=== PATIENT | male | born 1930 | race Caucasian/White ===

== ENCOUNTER 2019-01-13 17:52 | Emergency (ER) | payer MEDICARE ==
--- NOTE | 2019-01-13 18:34 | EDM.PDOC ---
ED HPI GENERAL MEDICAL PROBLEM - General Chief Complaint: General Stated Complaint: SENT BY DR FOY Time Seen by Provider: 01/13/19 18:20 Source of Information: Reports: Patient, Provider History Limitations: Reports: No Limitations - History of Present Illness INITIAL COMMENTS - FREE TEXT/NARRATIVE: 88-year-old male with no previous history of renal failure, presented to the clinic today with 5 days of progressive weakness. Labs done at the clinic revealed renal failure with a GFR of 16, creatinine 3.2, and potassium significantly high at 8.5. He was sent over to the emergency room for stabilization and transfer. The patient really does not have any complaints other than weakness. Denies any shortness of breath, he did have a few episodes of diarrhea over the past several days. No nausea or vomiting, no pain. He is a full code. Onset: Unknown/Unsure Duration: Day(s): (5 days) Location: Reports: Generalized - Related Data Allergies Allergy/AdvReac Type Severity Reaction Status Date / Time No Known Allergies Allergy Verified 01/13/19 18:24 Home Meds: Home Meds Aspirin 325 mg PO DAILY 08/08/16 [History] Clopidogrel [Plavix] 75 mg PO DAILY 08/08/16 [History] Lisinopril 10 mg PO DAILY 08/08/16 [History] Metoprolol Tartrate [Lopressor] 25 mg PO BID 08/08/16 [History] Nitroglycerin [Nitrostat] 0.3 mg SL ASDIRECTED 08/08/16 [History] Simvastatin [Zocor] 20 mg PO BEDTIME 08/08/16 [History] Tamsulosin [Flomax] 0.4 mg PO DAILY 08/08/16 [History] Furosemide 40 mg PO DAILY 01/13/19 [History] Past Medical History Cardiovascular History: Reports: Bypass, CAD, High Cholesterol, Hypertension, [place] , Stents Gastrointestinal History: Reports: Colon Polyp, Other (See Below) Other Gastrointestinal History: [facility] Musculoskeletal History: Reports: Other (See Below) Other Musculoskeletal History: 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 Denies: Fever, Chills HEENT: Reports: No Symptoms Respiratory: Denies: Shortness of Breath Cardiovascular: Denies: Chest Pain, Palpitations GI/Abdominal: Reports: Diarrhea. Denies: Abdominal Pain, Nausea, Vomiting : Reports: No Symptoms Skin: Reports: Other ( mild cyanosis mild cyanosis of the distal hands and fingers) Neurological: Reports: Weakness Psychiatric: Reports: No Symptoms ED EXAM, GENERAL - Physical Exam Exam: See Below Exam Limited By: No Limitations General Appearance: Alert, No Apparent Distress Eye Exam: Bilateral Eye: EOMI Head: Atraumatic Neck: Normal Inspection, Non-Tender Respiratory/Chest: No Respiratory Distress, Other (A few chronic sounding basilar rales are present, otherwise clear) Cardiovascular: Regular Rate, Rhythm, Bradycardia GI/Abdominal: Soft, Non-Tender Extremities: Pedal Edema (Just a trace of lower extremity edema, symmetric) Neurological: Alert, Oriented Psychiatric: Flat Affect EKG INTERPRETATION EKG Interpretation Comments: EKG showed a junctional rhythm at 44. 2 IVs were started, and the patient was given 1000 mg of IV calcium and 1 amp of D50. Also given 50 mEq of sodium bicarbonate. ABGs obtained before the bicarbonate revealed a pH of 7.1. Arrangements are made for urgent transfer to [place] where there is nephrology and dialysis available. Course - Vital Signs Last Recorded V/S: Last Vital Signs Temp 95.8 F 01/13/19 18:35 Pulse 42 L 01/13/19 19:12 Resp 14 01/13/19 19:12 BP 88/42 L 01/13/19 19:12 Pulse Ox 92 L 01/13/19 19:12 - Orders/Labs/Meds Orders: Active Orders 24 hr Category Date Time Status EKG Documentation Completion [RC] ASDIRECTED Care 01/13/19 18:32 Active EKG 12 Lead [EK] Routine Ther 01/13/19 18:32 Ordered Labs: Laboratory Tests 01/13/19 01/13/19 Range/Units 18:38 18:46 Puncture Site Rt.brachial ABG pH 7.108 L* (7.350-7.450) ABG pCO2 22.1 L (35.0-42.0) mmHg ABG pO2 97.0 (75.0-100.0) mmHg ABG HCO3 6.7 L (22.0-26.0) mmol/L ABG Total CO2 6.6 L (23.0-27.0) mmol/L ABG O2 Saturation 95.6 (95.0-98.0) % ABG O2 Content 15.1 (15.0-23.0) %vol ABG Base Excess -21.7 mm/L ABG Hemoglobin 11.2 L (13.5-18.0) g/dL ABG Oxyhemoglobin 95.0 % ABG Carboxyhemoglobin -0.1 L (0.0-1.6) % ABG Methemoglobin 0.7 % Rudy Test Passed O2 Delivery Device Room air Sodium 137 L (140-148) mmol/L Potassium 8.7 H* (3.6-5.2) mmol/L Chloride 113 H (100-108) mmol/L Carbon Dioxide 10 L D (21-32) mmol/L Anion Gap 22.7 H (5.0-14.0) mmol/L BUN 148 H* D (7-18) mg/dL Creatinine 3.3 H D (0.8-1.3) mg/dL Est Cr Clr Drug Dosing 14.97 mL/min Estimated GFR (MDRD) 18 L (>60) Glucose 93 (74-106) mg/dL Calcium 9.4 D (8.5-10.1) mg/dL Meds: Medications Discontinued Medications Generic Name Dose Route Start Last Admin Trade Name Freq PRN Reason Stop Dose Admin Calcium Gluconate 1 gm 01/13/19 18:38 01/13/19 19:12 Calcium Gluconate IVPUSH 01/13/19 18:39 1 gm ONETIME ONE Administration Dextrose/Water 50 ml 01/13/19 18:38 01/13/19 18:59 Dextrose 50% In Water IVPUSH 01/13/19 18:39 50 ml ONETIME ONE Administration Sodium Chloride 1,000 mls @ 1,000 mls/hr 01/13/19 19:15 01/13/19 19:35 Normal Saline IV 1,000 mls/hr ASDIRECTED MARY Administration Insulin Human Regular 8 unit 01/13/19 19:12 01/13/19 19:30 Humulin R IVPUSH 01/13/19 19:13 8 units ONETIME ONE Administration Sodium Bicarbonate 50 meq 01/13/19 18:52 01/13/19 19:13 Sodium Bicarbonate 8.4% IVPUSH 01/13/19 18:53 50 meq ONETIME ONE Administration - Re-Assessments/Exams Free Text/Narrative Re-Assessment/Exam: 01/13/19 19:10 On arrival to the emergency room patient was placed on cardiac monitoring and appeared to be in a junctional bradycardia. This was confirmed with an EKG. 2 IVs were started, and preparations were made to treat for acute hyper ketonemia. ABGs were drawn, revealing a pH of 7.108. O2 saturations were 100%. Patient was actually quite comfortable. He was given 1000 mg of calcium gluconate, 1 amp of 50 mEq sodium bicarbonate, and 1 amp of D50. This was followed by 8 units of IV insulin. Prior to the sodium bicarbonate, a BMP was repeated. Arrangement was made to urgently transferred to [facility] for nephrology evaluation and likely dialysis. 01/13/19 20:37 On transfer the patient will be hydrated with normal saline at 500 mL an hour. We elected to send by ground as it will be up to an hour faster. Departure - Departure Time of Disposition: 19:50 Disposition: DC/Tfer to [facility] 02 Condition: Poor Clinical Impression: Hyperkalemia Renal failure Qualifiers: Renal failure chronicity: acute Acute renal failure type: unspecified Qualified Code(s): N17.9 - Acute kidney failure, unspecified - Discharge Information Referrals: Austin Foy MD [Primary Care Provider] - Forms: ED Department Discharge - My Orders Last 24 Hours: My Active Orders 01/13/19 18:32 EKG Documentation Completion [RC] ASDIRECTED EKG 12 Lead [EK] Routine - Assessment/Plan Last 24 Hours: My Active Orders 01/13/19 18:32 EKG Documentation Completion [RC] ASDIRECTED EKG 12 Lead [EK] Routine
[2019-01-13] MEDS ORDERED: 50% Dextrose in Water 50 ML Syringe IVPUSH ONE (18:38)
[2019-01-13] MEDS ORDERED: Calcium Gluconate 10% 1 GM/10 ML SDV IVPUSH ONE (18:38)
[2019-01-13] MEDS ORDERED: Sodium Bicarbonate 8.4% 50 MEQ/50 ML Syringe IVPUSH ONE (18:52)
[2019-01-13] MEDS ORDERED: Insulin Regular, Human 100 Units/ML 3 ML Vial IVPUSH ONE (19:12)
[2019-01-13] MEDS ORDERED: Sodium Chloride 0.9% 1,000 ML IV SCH (19:15)
[2019-01-13 19:19] VITALS: BP 88/42
== END 2019-01-13 19:50 ==
LOC: JP.ED 17:52
DX: N17.9 Acute kidney failure, unspecified (principal); E87.5 Hyperkalemia; E78.00 Pure hypercholesterolemia, unspecified; I10 Essential (primary) hypertension; I25.2 Old myocardial infarction; Z95.5 Presence of coronary angioplasty implant and graft; Z79.82 Long term (current) use of aspirin; Z79.899 Other long term (current) drug therapy; Z79.01 Long term (current) use of anticoagulants; Z95.0 Presence of cardiac pacemaker
CPT/HCPCS: 36415; 36600; 80048; 82803; 93005; 96374; 96375; 99285; J0610; J7030; J1815-GY

== ENCOUNTER 2019-03-03 13:19 | Emergency (ER) | payer MEDICARE ==
[2019-03-03] MEDS ORDERED: Diltiazem 25 MG/5 ML SDV IVPUSH ONE ×2 (14:12→15:04)
--- NOTE | 2019-03-03 14:14 | EDM.PDOC ---
ED HPI GENERAL MEDICAL PROBLEM - General Chief Complaint: Cardiovascular Problem Stated Complaint: BLOOD PRESSURE IS UP AND AND HEART RATE Time Seen by Provider: 03/03/19 13:55 Source of Information: Reports: Patient, Family, Other (cardiac rehabilitation) History Limitations: Reports: No Limitations - History of Present Illness INITIAL COMMENTS - FREE TEXT/NARRATIVE: 88-year-old male received several stents recently, was in cardiac rehabilitation today and he is usually running a rate of around 60, today he is over 1:30 with an irregular rhythm. He was in a normal rhythm last , he is asymptomatic. He just ate a meal an hour and a half ago. Onset: Unknown/Unsure Duration: Other (Last known normal was 4 days ago) Associated Symptoms: Reports: No Other Symptoms Denies Pain Score (Numeric/FACES): 0 - Related Data Allergies Allergy/AdvReac Type Severity Reaction Status Date / Time No Known Allergies Allergy Verified 03/03/19 13:52 Home Meds: Home Meds Aspirin 81 mg PO DAILY 08/08/16 [History] Clopidogrel [Plavix] 75 mg PO DAILY 08/08/16 [History] Lisinopril 2.5 mg PO DAILY 08/08/16 [History] Metoprolol Tartrate [Lopressor] 25 mg PO BID 08/08/16 [History] Nitroglycerin [Nitrostat] 0.3 mg SL ASDIRECTED 08/08/16 [History] Simvastatin [Zocor] 20 mg PO BEDTIME 08/08/16 [History] Tamsulosin [Flomax] 0.4 mg PO DAILY 08/08/16 [History] Furosemide 40 mg PO TID 01/13/19 [History] Past Medical History HEENT History: Reports: Impaired Vision Cardiovascular History: Reports: Bypass, CAD, High Cholesterol, Hypertension, [place] , Stents Gastrointestinal History: Reports: Colon Polyp, Other (See Below) Other Gastrointestinal History: [facility] Genitourinary History: Reports: BPH, Retention, Urinary Musculoskeletal History: Reports: Other (See Below) Other Musculoskeletal History: 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 Hematologic History: Reports: Blood Transfusion(s) - Past Surgical History Cardiovascular Surgical History: Reports: Coronary Artery Bypass, Coronary Artery Stent Social & Family History - Tobacco Use Smoking Status *Q: Former Smoker Years of Tobacco use: 20 Packs/Tins Daily: 1 Used Tobacco, but Quit: Yes Month/Year Tobacco Last Used: [id number] Second Hand Smoke Exposure: No - Caffeine Use Caffeine Use: Reports: Coffee, Soda - Recreational Drug Use Recreational Drug Use: No ED ROS GENERAL - Review of Systems Review Of Systems: See Below Constitutional: Denies: Fever, Chills Respiratory: Denies: Shortness of Breath, Cough Cardiovascular: Denies: Chest Pain, Palpitations GI/Abdominal: Denies: Abdominal Pain, Nausea, Vomiting Neurological: Denies: Headache Psychiatric: Reports: No Symptoms ED EXAM, GENERAL - Physical Exam Exam: See Below Exam Limited By: No Limitations General Appearance: Alert, No Apparent Distress Eye Exam: Bilateral Eye: EOMI Head: Atraumatic Respiratory/Chest: No Respiratory Distress, Lungs Clear, Other (Skeletal hypertrophy of the upper chest) Cardiovascular: Tachycardia, Irregularly Irregular GI/Abdominal: Non-Tender Extremities: No Pedal Edema Neurological: Alert, Oriented Psychiatric: Normal Affect, Normal Mood Skin Exam: Warm, Dry Course - Vital Signs Last Recorded V/S: Last Vital Signs Temp 97.6 F 03/03/19 13:51 Pulse 81 03/03/19 15:43 Resp 16 03/03/19 15:25 BP 115/79 03/03/19 15:43 Pulse Ox 97 03/03/19 15:25 - Orders/Labs/Meds Labs: Laboratory Tests 03/03/19 03/03/19 Range/Units 14:28 14:28 WBC 4.8 (4.5-11.0) K/uL RBC 4.11 L (4.30-5.90) M/uL Hgb 12.7 (12.0-15.0) g/dL Hct 41.5 (40.0-54.0) % MCV 101 H (80-98) fL MCH 31 (27-31) pg MCHC 31 L (32-36) % Plt Count 144 L (150-400) K/uL Neut % (Auto) 77 H (36-66) % Lymph % (Auto) 12 L (24-44) % [place] % (Auto) 7 H (2-6) % Eos % (Auto) 4 (2-4) % Baso % (Auto) 0 (0-1) % Sodium 142 (140-148) mmol/L Potassium 4.2 (3.6-5.2) mmol/L Chloride 105 (100-108) mmol/L Carbon Dioxide 28 D (21-32) mmol/L Anion Gap 13.2 (5.0-14.0) mmol/L BUN 33 H D (7-18) mg/dL Creatinine 1.1 D (0.8-1.3) mg/dL Est Cr Clr Drug Dosing 44.91 mL/min Estimated GFR (MDRD) > 60 (>60) Glucose 151 H (74-106) mg/dL Calcium 9.3 (8.5-10.1) mg/dL Meds: Medications Discontinued Medications Generic Name Dose Route Start Last Admin Trade Name Freq PRN Reason Stop Dose Admin Diltiazem HCl 15 mg 03/03/19 14:12 03/03/19 14:29 Diltiazem IVPUSH 03/03/19 14:13 15 mg ONETIME ONE Administration Diltiazem HCl 120 mg 03/03/19 15:01 03/03/19 15:43 Cardizem Cd PO 03/03/19 15:02 120 mg ONETIME ONE Administration Diltiazem HCl 15 mg 03/03/19 15:04 03/03/19 15:11 Diltiazem IVPUSH 03/03/19 15:05 15 mg ONETIME ONE Administration Sodium Chloride 1,000 mls @ 150 mls/hr 03/03/19 14:15 03/03/19 14:34 Normal Saline IV 150 mls/hr ASDIRECTED [facility] Administration - Re-Assessments/Exams Free Text/Narrative Re-Assessment/Exam: 03/03/19 14:54 Monitor and cardiac rehabilitation rhythm strips reviewed, patient is in atrial fibrillation with RVR at a rate of 140. He is asymptomatic. CBC and BMP were obtained, IV started and the patient given 15 mg of IV Cardizem which slowed his rate to 95-105 but he remained in atrial fibrillation. 03/03/19 15:00 CBC and BMP were normal, patient remained in atrial fibrillation with a rate between 100 -110. After discussing his situation with the hospitalist service, we elected to give him 120 mg of long-acting Cardizem and he can come back in the tomorrow morning and recheck his rhythm. He can return sooner if he develops symptoms such as shortness of breath or chest pain. 03/03/19 15:04 Patient was very amenable and encouraged to go home however his rate increased to 125-130 just prior to discharge. In addition to giving the oral long-acting Cardizem, he was also given a second 15 mg IV Cardizem bolus. Departure - Departure Time of Disposition: 15:49 Disposition: Home, Self-Care 01 Clinical Impression: Atrial fibrillation Qualifiers: Atrial fibrillation type: paroxysmal Qualified Code(s): I48.0 - Paroxysmal atrial fibrillation Instructions: Atrial Fibrillation, [id number] Referrals: Austin Moran MD [Primary Care Provider] - Forms: ED Department Discharge Care Plan Goals: Continue your current medications and return to the emergency room tomorrow morning for a monitor recheck. Return sooner if worsening or concerns such as shortness of breath or chest pain.
[2019-03-03] MEDS ORDERED: Sodium Chloride 0.9% 1,000 ML IV SCH (14:15)
[2019-03-03] MEDS ORDERED: Diltiazem 120 MG Cap.CD PO ONE (15:01)
[2019-03-03 15:44] VITALS: BP 115/79
== END 2019-03-03 15:49 | disposition home or self-care (01) ==
LOC: JP.ED 13:19
DX: I48.0 Paroxysmal atrial fibrillation (principal); I10 Essential (primary) hypertension; E78.00 Pure hypercholesterolemia, unspecified; I25.2 Old myocardial infarction; Z79.899 Other long term (current) drug therapy; Z87.891 Personal history of nicotine dependence; Z79.82 Long term (current) use of aspirin
CPT/HCPCS: 36415; 80048; 85025; 96361; 96374; 96376; 99284; A9270; J3490; J7030

== ENCOUNTER 2019-03-04 08:58 | Inpatient (IN) | payer MEDICARE ==
[2019-03-04] MEDS ORDERED: Diltiazem 125 MG in Sodium Chloride 0.9% 100 ML IV SCH ×2 (09:30→14:00)
--- NOTE | 2019-03-04 09:30 | EDM.PDOC ---
ED HPI GENERAL MEDICAL PROBLEM - General Chief Complaint: Cardiovascular Problem Stated Complaint: HEART ISSUES Time Seen by Provider: 03/04/19 09:15 Source of Information: Reports: Patient History Limitations: Reports: No Limitations - History of Present Illness INITIAL COMMENTS - FREE TEXT/NARRATIVE: 88-year-old male who was evaluated for asymptomatic atrial fibrillation with rapid ventricular rate yesterday, responded well to IV Cardizem for rate control was discharged on oral extended release Cardizem and was told to reevaluate this morning to see if he was still in atrial fibrillation versus sinus rhythm. He remains asymptomatic but unfortunately he also remains in atrial fibrillation. He arrived with a ventricular rate of 131. No shortness of breath or pain, no palpitations. Onset: Unknown/Unsure Treatments REDYE HAND: Reports: Other (see below) (Oral Cardizem extended release, 120 mg last evening) - Related Data Allergies Allergy/AdvReac Type Severity Reaction Status Date / Time No Known Allergies Allergy Verified 03/04/19 09:23 Home Meds: Home Meds Clopidogrel [Plavix] 75 mg PO DAILY 08/08/16 [History] Lisinopril 2.5 mg PO DAILY 08/08/16 [History] Nitroglycerin [Nitrostat] 0.3 mg SL ASDIRECTED 08/08/16 [History] Simvastatin [Zocor] 20 mg PO BEDTIME 08/08/16 [History] Tamsulosin [Flomax] 0.4 mg PO DAILY 08/08/16 [History] Furosemide 60 mg PO DAILY 01/13/19 [History] Past Medical History HEENT History: Reports: Impaired Vision Cardiovascular History: Reports: Bypass, CAD, High Cholesterol, Hypertension, [place] , Stents Gastrointestinal History: Reports: Colon Polyp, Other (See Below) Other Gastrointestinal History: [facility] Genitourinary History: Reports: BPH, Retention, Urinary Musculoskeletal History: Reports: Other (See Below) Other Musculoskeletal History: 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 Hematologic History: Reports: Blood Transfusion(s) - Past Surgical History Cardiovascular Surgical History: Reports: Coronary Artery Bypass, Coronary Artery Stent Social & Family History - Caffeine Use Caffeine Use: Reports: Coffee, Soda ED ROS GENERAL - Review of Systems Review Of Systems: See Below Constitutional: Denies: Fever Respiratory: Reports: No Symptoms Cardiovascular: Reports: No Symptoms GI/Abdominal: Denies: Nausea, Vomiting Neurological: Reports: No Symptoms ED EXAM, GENERAL - Physical Exam Exam: See Below Exam Limited By: No Limitations General Appearance: Alert, No Apparent Distress Respiratory/Chest: No Respiratory Distress, Lungs Clear Cardiovascular: Tachycardia, Irregularly Irregular Extremities: Normal Inspection. No: No Pedal Edema Neurological: Alert, Oriented Psychiatric: Normal Affect, Normal Mood Course - Vital Signs Last Recorded V/S: Last Vital Signs Temp 96.8 F 03/04/19 09:17 Pulse 79 03/04/19 12:39 Resp 17 03/04/19 12:39 BP 114/64 03/04/19 12:39 Pulse Ox 99 03/04/19 12:39 - Orders/Labs/Meds Orders: Medication Orders Acetaminophen (Tylenol) 650 mg PO Q4H PRN PRN Reason: Pain (Mild 1-3)/fever Albuterol (Proventil Neb Soln) 2.5 mg NEB Q4H PRN PRN Reason: Shortness Of Breath/wheezing Aspirin (Halfprin) 81 mg PO DAILY [facility] Clopidogrel Bisulfate (Plavix) 75 mg PO DAILY [facility] Enoxaparin Sodium (Lovenox) 40 mg SUBCUT DAILY@1600 [facility] Furosemide (Lasix) 60 mg PO DAILY [facility] Diltiazem HCl 125 mg/ Sodium (Chloride) 125 mls @ 5 mls/hr IV TITRATE MARY; Protocol Lisinopril (Prinivil) 2.5 mg PO DAILY [facility] Metoprolol Tartrate (Lopressor) 25 mg PO BID [facility] Ondansetron HCl (Zofran) 4 mg IV Q4H PRN PRN Reason: Nausea/Vomiting Polyethylene Glycol (Miralax) 17 gm PO DAILY PRN PRN Reason: Constipation Simvastatin (Zocor) 20 mg PO BEDTIME [facility] Sodium Chloride (Saline Flush) 10 ml FLUSH ASDIRECTED PRN PRN Reason: Keep Vein Open Tamsulosin HCl (Flomax) 0.4 mg PO DAILY [facility] Warfarin Sodium (Coumadin) 5 mg PO DAILY@1300 MARY Last Admin: 03/04/19 14:20 Dose: 5 mg Meds: Medications Generic Name Dose Route Start Last Admin Trade Name Freq PRN Reason Stop Dose Admin Acetaminophen 650 mg 03/04/19 13:27 Tylenol PO Q4H PRN Pain (Mild 1-3)/fever Albuterol 2.5 mg 03/04/19 13:27 Proventil Neb Soln NEB Q4H PRN Shortness Of Breath/wheezing Aspirin 81 mg 03/05/19 09:00 Halfprin PO DAILY [facility] Clopidogrel Bisulfate 75 mg 03/05/19 09:00 Plavix PO DAILY [facility] Enoxaparin Sodium 40 mg 03/04/19 16:00 Lovenox SUBCUT DAILY@1600 [facility] Furosemide 60 mg 03/05/19 09:00 Lasix PO DAILY [facility] Diltiazem HCl 125 mg/ Sodium 125 mls @ 5 mls/hr 03/04/19 14:00 Chloride IV TITRATE [facility] Protocol 5 MG/HR Lisinopril 2.5 mg 03/05/19 09:00 Prinivil PO DAILY [facility] Metoprolol Tartrate 25 mg 03/04/19 21:00 Lopressor PO BID [facility] Ondansetron HCl 4 mg 03/04/19 13:27 Zofran IV Q4H PRN Nausea/Vomiting Polyethylene Glycol 17 gm 03/04/19 13:27 Miralax PO DAILY PRN Constipation Simvastatin 20 mg 03/04/19 21:00 Zocor PO BEDTIME [facility] Sodium Chloride 10 ml 03/04/19 13:27 Saline Flush FLUSH ASDIRECTED PRN Keep Vein Open Tamsulosin HCl 0.4 mg 03/05/19 09:00 Flomax PO DAILY [facility] Warfarin Sodium 5 mg 03/04/19 14:30 03/04/19 14:20 Coumadin PO 5 mg DAILY@1300 [facility] Administration Discontinued Medications Generic Name Dose Route Start Last Admin Trade Name Freq PRN Reason Stop Dose Admin Furosemide 40 mg 03/04/19 14:00 Lasix PO TID [facility] Diltiazem HCl 125 mg/ Dextrose 125 mls @ 5 mls/hr 03/04/19 09:30 /Water IV TITRATE [facility] Protocol 5 MG/HR Diltiazem HCl 125 mg/ Sodium 125 mls @ 5 mls/hr 03/04/19 09:30 03/04/19 09:39 Chloride IV 5 mg/hr TITRATE MARY 5 mls/hr Administration Protocol 5 MG/HR - Re-Assessments/Exams Free Text/Narrative Re-Assessment/Exam: 03/04/19 09:49 Patient was placed on a assistant nurse manager which confirmed atrial fibrillation with a rate between 120-135. An IV was started, the hospitalist service was consulted for possible cardioversion but because of the unknown timing between onset of atrial fibrillation and lack of anticoagulation, the patient will be started on a Cardizem drip for rate control and admitted and anticoagulation started per Dr. Benitez. Departure - Departure Time of Disposition: 14:17 Disposition: Admitted As Inpatient 66 Condition: Good Clinical Impression: Atrial fibrillation with rapid ventricular response
--- NOTE | 2019-03-04 12:12 | PCM.HP ---
H&P History of Present Illness - General Date of Service: 03/04/19 Admit Problem/Dx: Admission Diagnosis/Problem Admission Diagnosis/Problem Atrial fibrillation with rapid ventricular response Source of Information: Patient, Provider, RN Notes Reviewed History Limitations: Reports: No Limitations - History of Present Illness Initial Comments - Free Text/Narative: Mr. Pierson is an 88-year-old gentleman was admitted through the emergency department with atrial fibrillation and rapid ventricular response. He is status post myocardial infarction with angioplasty and stent placement done over one month ago. Apparently hospital course at that time was complicated by atrial fibrillation and he was treated for a few weeks with Eliquis. He had been feeling well and participating in cardiac rehabilitation. He had been to cardiac rehabilitation last , February 26, at that time he was found to be in sinus rhythm. He went back to cardiac rehabilitation yesterday March 03, was found to be in atrial fibrillation with rapid ventricular response. He was entirely asymptomatic and denied any symptoms of chest pain or pressure, shortness of breath, lightheadedness, or palpitations. He was seen and evaluated in the emergency department,, atrial fibrillation was confirmed. He preferred to avoid hospitalization and was treated with oral diltiazem for rate control. He returned this morning and was still found to be in the range 130 bpm with persistent atrial fibrillation. He remains entirely asymptomatic, labs obtained yesterday showed no acute abnormalities or significant electrolyte imbalances. - Related Data Allergies/Adverse Reactions: Allergies Allergy/AdvReac Type Severity Reaction Status Date / Time No Known Allergies Allergy Verified 03/04/19 09:23 Home Medications: Home Meds Aspirin 81 mg PO DAILY 08/08/16 [History] Clopidogrel [Plavix] 75 mg PO DAILY 08/08/16 [History] Lisinopril 2.5 mg PO DAILY 08/08/16 [History] Metoprolol Tartrate [Lopressor] 25 mg PO BID 08/08/16 [History] Nitroglycerin [Nitrostat] 0.3 mg SL ASDIRECTED 08/08/16 [History] Simvastatin [Zocor] 20 mg PO BEDTIME 08/08/16 [History] Tamsulosin [Flomax] 0.4 mg PO DAILY 08/08/16 [History] Furosemide 40 mg PO TID 01/13/19 [History] Past Medical History HEENT History: Reports: Impaired Vision Cardiovascular History: Reports: Bypass, CAD, High Cholesterol, Hypertension, [place] , Stents Gastrointestinal History: Reports: Colon Polyp, Other (See Below) Other Gastrointestinal History: [facility] Genitourinary History: Reports: BPH, Retention, Urinary Musculoskeletal History: Reports: Other (See Below) Other Musculoskeletal History: 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 Hematologic History: Reports: Blood Transfusion(s) - Past Surgical History Cardiovascular Surgical History: Reports: Coronary Artery Bypass, Coronary Artery Stent Social & Family History - Tobacco Use Smoking Status *Q: Former Smoker Used Tobacco, but Quit: Yes Month/Year Tobacco Last Used: 20 - Caffeine Use Caffeine Use: Reports: Coffee, Soda - Recreational Drug Use Recreational Drug Use: No H&P Review of Systems - Review of Systems: Review Of Systems: See Below General: Reports: No Symptoms HEENT: Reports: No Symptoms Pulmonary: Reports: No Symptoms Cardiovascular: Reports: No Symptoms Gastrointestinal: Reports: No Symptoms Genitourinary: Reports: No Symptoms Musculoskeletal: Reports: No Symptoms Skin: Reports: No Symptoms Psychiatric: Reports: No Symptoms Neurological: Reports: No Symptoms Hematologic/Lymphatic: Reports: No Symptoms Immunologic: Reports: No Symptoms Exam - Exam Exam: See Below - Vital Signs Vital Signs: Last Vital Signs Temp 96.8 F 03/04/19 09:17 Pulse 113 H 03/04/19 11:08 Resp 16 03/04/19 11:08 BP 111/79 03/04/19 11:08 Pulse Ox 99 03/04/19 11:08 Weight: 156 lb 1.396 oz - Exam General: Alert, Oriented, Cooperative HEENT: Conjunctiva Clear, Hearing Intact, Mucosa Moist & [place], Normal Nasal Septum, Posterior Pharynx Clear, Pupils Equal Neck: Supple, Trachea Midline, +2 Carotid Pulse wo Bruit Lungs: Clear to Auscultation, Normal Respiratory Effort Cardiovascular: Normal S1, Normal S2, Irregular Rhythm, Tachycardia. No: Systolic Murmur, Diastolic Murmur GI/Abdominal Exam: Soft, Non-Tender, No Organomegaly, No Distention Extremities: Non-Tender, No Pedal Edema Skin: Warm, Dry, Intact Neurological: Cranial Nerves Intact, Strength Equal Bilateral, Normal Speech, Normal Tone, Sensation Intact. No: Focal Deficit Neuro Extensive - Mental Status: Alert, Oriented x3, Normal Mood/Affect, Normal Cognition, Memory Intact *Q Meaningful Use (ADM) - VTE Risk Assess *Q Each Risk Factor Represents 1 Point: None Total Score 1 Point Risk Factors: 0 Each Risk Factor Represents 2 Points: None Total Score 2 Point Risk Factors: 0 Each Risk Factor Represents 3 Points: Age 75 Years or Greater Total Score 3 Point Risk Factors: 3 Each Risk Factor Represents 5 Points: None Total Score 5 Point Risk Factors: 0 Venous Thromboembolism Risk Factor Score *Q: 3 Problem List Initiated/Reviewed/Updated: Yes Orders Last 24hrs: Active Orders 24 hr Category Date Time Status Patient Status Manage Transfer [TRANSFER] Routine ADT 03/04/19 11:57 Active Diltiazem 125 mg Med 03/04/19 09:30 Active Sodium Chloride 0.9% [Normal Saline] 100 ml IV TITRATE Resuscitation Status Routine Resus Stat 03/04/19 12:01 Ordered Medication Orders Diltiazem HCl 125 mg/ Sodium (Chloride) 125 mls @ 5 mls/hr IV TITRATE [facility]; Protocol Last Admin: 03/04/19 09:39 Dose: 5 mg/hr, 5 mls/hr Assessment/Plan Comment:: ASSESSMENT AND PLAN ATRIAL FIBRILLATION WITH RAPID VENTRICULAR RESPONSE-currently asymptomatic, heart rates in the 120s to 130s. [id number] score of 4, we discussed options for anticoagulation, he prefers use of warfarin. -Sheet anticoagulation with warfarin -Recheck INR in a.m. -IV diltiazem for rate control -Transition to oral diltiazem in a.m. CORONARY ARTERY DISEASE-currently asymptomatic, denies chest pain or shortness of breath. Status post recent myocardial infarction,, followed by angioplasty with stent placement -Continue outpatient management MAINTENANCE ISSUES -DVT prophylaxis; Lovenox 40 mg subcutaneous daily -GI prophylaxis; not indicated -Schneider catheter; not indicated -Nutrition; 2 g sodium diet -Nicotine dependence; not required CODE STATUS-FULL CODE ADMISSION STATUS-patient will be admitted to inpatient status, expect at least a 2 night hospital stay for evaluation and management of problems as outlined above. At the time of this admission I do not reasonably expected evaluation and management of this problem will require more than a 96 hour hospital stay. DISPOSITION-anticipate discharge to home after the hospital stay. PRIMARY CARE PROVIDER-Dr. Moran
[2019-03-04] MEDS ORDERED: Albuterol 0.083% 2.5 MG/3 ML Neb Soln NEB PRN (13:27)
[2019-03-04] MEDS ORDERED: Acetaminophen 325 MG Tab PO PRN (13:27)
[2019-03-04] MEDS ORDERED: Ondansetron 4 MG/2 ML SDV IV PRN (13:27)
[2019-03-04] MEDS ORDERED: Sodium Chloride 0.9% 10 ML Syringe FLUSH PRN (13:27)
[2019-03-04] MEDS ORDERED: Polyethylene Glycol 3350 Powder 17 GM Packet PO PRN (13:27)
[2019-03-04] MEDS ORDERED: Furosemide 40 MG Tab PO SCH (14:00)
[2019-03-04] MEDS: Warfarin 5 MG Tab PO SCH (14:20)
[2019-03-04] MEDS: Enoxaparin 40 MG/0.4 ML Syringe SUBCUT SCH (17:27)
[2019-03-04] MEDS: Metoprolol Tartrate 25 MG Tab PO SCH (20:54)
[2019-03-04] MEDS: Simvastatin 20 MG Tab PO SCH (20:54)
[2019-03-05] MEDS: Clopidogrel 75 MG Tab PO SCH (09:25)
[2019-03-05] MEDS: Metoprolol Tartrate 25 MG Tab PO SCH ×2 (09:25→20:54)
[2019-03-05] MEDS: Furosemide 20 MG Tab PO SCH (09:26)
[2019-03-05] MEDS: Aspirin 81 MG Tab.EC PO SCH (09:26)
[2019-03-05] MEDS: Lisinopril 2.5 MG Tab PO SCH (09:26)
[2019-03-05] MEDS: Diltiazem IR 30 MG Tab PO SCH ×2 (09:26→16:28)
[2019-03-05] MEDS: Tamsulosin 0.4 MG Cap.ER PO SCH (09:27)
--- NOTE | 2019-03-05 09:41 | PCM.PN ---
- General Info Date of Service: 03/05/19 Subjective Update: Mr. Pierson has continued to experience intermittent elevations of her heart rate. Use of IV diltiazem during the night was complicated by hypotension, IV infusion was discontinued temporarily. Heart rate improved but still remain elevated above desired range. He denies any significant symptoms, specifically chest pain, shortness of breath, lightheadedness, or palpitations. Functional Status: Reports: Tolerating Diet, Ambulating, Urinating - Review of Systems General: Reports: No Symptoms Pulmonary: Reports: No Symptoms Cardiovascular: Reports: No Symptoms Gastrointestinal: Reports: No Symptoms - Patient Data Vitals - Most Recent: Last Vital Signs Temp 97.1 F 03/05/19 03:36 Pulse 139 H 03/05/19 09:25 Resp 20 03/05/19 08:00 BP 125/75 03/05/19 09:26 Pulse Ox 96 03/05/19 08:00 Weight - Most Recent: 152 lb 12.485 oz I&O - Last 24 Hours: Intake & Output 03/04/19 03/05/19 03/05/19 22:59 06:59 14:59 Intake Total 443 621 Output Total 500 375 Balance -57 246 Lab Results Last 24 Hours: Laboratory Results - last 24 hr 03/04/19 03/04/19 03/04/19 Range/Units 13:41 13:41 13:41 PT 19.2 H (9.5-12.0) sec INR 1.80 H (0.80-1.20) Sodium 143 (140-148) mmol/L Potassium 4.9 (3.6-5.2) mmol/L Chloride 107 (100-108) mmol/L Carbon Dioxide 28 (21-32) mmol/L Anion Gap 8.1 (5.0-14.0) mmol/L BUN 32 H (7-18) mg/dL Creatinine 1.1 (0.8-1.3) mg/dL Est Cr Clr Drug Dosing 44.91 mL/min Estimated GFR (MDRD) > 60 (>60) Glucose 80 (74-106) mg/dL Calcium 9.0 (8.5-10.1) mg/dL Magnesium 2.2 (1.8-2.4) mg/dL TSH, Ultra Sensitive 3.287 (0.358-3.740) uIU/mL 03/05/19 Range/Units 04:25 PT 12.0 (9.5-12.0) sec INR 1.10 (0.80-1.20) Sodium (140-148) mmol/L Potassium (3.6-5.2) mmol/L Chloride (100-108) mmol/L Carbon Dioxide (21-32) mmol/L Anion Gap (5.0-14.0) mmol/L BUN (7-18) mg/dL Creatinine (0.8-1.3) mg/dL Est Cr Clr Drug Dosing mL/min Estimated GFR (MDRD) (>60) Glucose (74-106) mg/dL Calcium (8.5-10.1) mg/dL Magnesium (1.8-2.4) mg/dL TSH, Ultra Sensitive (0.358-3.740) uIU/mL Med Orders - Current: Current Medications Acetaminophen (Tylenol) 650 mg PO Q4H PRN PRN Reason: Pain (Mild 1-3)/fever Albuterol (Proventil Neb Soln) 2.5 mg NEB Q4H PRN PRN Reason: Shortness Of Breath/wheezing Aspirin (Halfprin) 81 mg PO DAILY [facility] Last Admin: 03/05/19 09:26 Dose: 81 mg Clopidogrel Bisulfate (Plavix) 75 mg PO DAILY [facility] Last Admin: 03/05/19 09:25 Dose: 75 mg Diltiazem HCl (Cardizem) 30 mg PO Q6HR [facility] Last Admin: 03/05/19 09:26 Dose: 30 mg Enoxaparin Sodium (Lovenox) 40 mg SUBCUT DAILY@1600 [facility] Last Admin: 03/04/19 17:27 Dose: 40 mg Furosemide (Lasix) 60 mg PO DAILY [facility] Last Admin: 03/05/19 09:26 Dose: 60 mg Lisinopril (Prinivil) 2.5 mg PO DAILY [facility] Last Admin: 03/05/19 09:26 Dose: 2.5 mg Metoprolol Tartrate (Lopressor) 25 mg PO BID [facility] Last Admin: 03/05/19 09:25 Dose: 25 mg Ondansetron HCl (Zofran) 4 mg IV Q4H PRN PRN Reason: Nausea/Vomiting Polyethylene Glycol (Miralax) 17 gm PO DAILY PRN PRN Reason: Constipation Simvastatin (Zocor) 20 mg PO BEDTIME [facility] Last Admin: 03/04/19 20:54 Dose: 20 mg Sodium Chloride (Saline Flush) 10 ml FLUSH ASDIRECTED PRN PRN Reason: Keep Vein Open Tamsulosin HCl (Flomax) 0.4 mg PO DAILY [facility] Last Admin: 03/05/19 09:27 Dose: 0.4 mg Warfarin Sodium (Coumadin) 5 mg PO DAILY@1300 [facility] Last Admin: 03/04/19 14:20 Dose: 5 mg Discontinued Medications Furosemide (Lasix) 40 mg PO TID [facility] Diltiazem HCl 125 mg/ Dextrose (/Water) 125 mls @ 5 mls/hr IV TITRATE [facility]; Protocol Diltiazem HCl 125 mg/ Sodium (Chloride) 125 mls @ 5 mls/hr IV TITRATE [facility]; Protocol Last Admin: 03/04/19 09:39 Dose: 5 mg/hr, 5 mls/hr Diltiazem HCl 125 mg/ Sodium (Chloride) 125 mls @ 5 mls/hr IV TITRATE [facility]; Protocol Last Titration: 03/05/19 07:22 Dose: 5 mg/hr, 5 mls/hr - Exam Quality Assessment: DVT Prophylaxis General: Alert, Oriented, Cooperative, No Acute Distress Lungs: Clear to Auscultation, Normal Respiratory Effort Cardiovascular: No Murmurs, Irregular Rhythm, Tachycardia GI/Abdominal Exam: Soft, Non-Tender, No Organomegaly, No Distention, No Abnormal Bruit Extremities: Non-Tender, No Pedal Edema - Problem List Review Problem List Initiated/Reviewed/Updated: Yes - My Orders Last 24 Hours: My Active Orders 03/04/19 12:01 Resuscitation Status Routine 03/04/19 13:27 Patient Status [ADT] Routine Ambulate [RC] QID Cardiac Monitoring [RC] Q6H Height and Weight [RC] DAILY Intake and Output [RC] QSHIFT Notify Provider Vital Signs [RC] ASDIRECTED Oxygen Therapy [RC] PRN RT Aerosol Therapy [RC] ASDIRECTED Up to Chair [RC] QID VTE/DVT Education [RC] Per Unit Routine Vital Signs [RC] Q1H Acetaminophen [Tylenol] 650 mg PO Q4H PRN Albuterol [Proventil Neb Soln] 2.5 mg NEB Q4H PRN Ondansetron [Zofran] 4 mg IV Q4H PRN Polyethylene Glycol 3350 [MiraLAX] 17 gm PO DAILY PRN Sodium Chloride 0.9% [Saline Flush] 10 ml FLUSH ASDIRECTED PRN Saline Lock Insert [OM.PC] Routine 03/04/19 14:30 Warfarin [Coumadin] 5 mg PO DAILY@1300 03/04/19 16:00 Enoxaparin [Lovenox] 40 mg SUBCUT DAILY@1600 03/04/19 21:00 Metoprolol Tartrate [Lopressor] 25 mg PO BID Simvastatin [Zocor] 20 mg PO BEDTIME 03/04/19 Lunch 2 Gram Sodium Diet [DIET] 03/05/19 08:00 Echo Comp wo Cont [US] Urgent 03/05/19 09:00 Aspirin [Halfprin] 81 mg PO DAILY Clopidogrel [Plavix] 75 mg PO DAILY Furosemide [Lasix] 60 mg PO DAILY Lisinopril [Prinivil] 2.5 mg PO DAILY Tamsulosin [Flomax] 0.4 mg PO DAILY 03/05/19 10:00 Diltiazem IR [Cardizem] 30 mg PO Q6HR 03/06/19 05:00 INR,PT,PROTHROMBIN TIME [COAG] Timed - Plan Plan:: ASSESSMENT AND PLAN ATRIAL FIBRILLATION WITH RAPID VENTRICULAR RESPONSE-currently asymptomatic, heart rates improved from admission but still remain elevated. [id number] score of 4, we discussed options for anticoagulation, he prefers use of warfarin. -Warfarin 5 mg by mouth daily -Recheck INR in a.m. -Discontinue IV diltiazem -Transition to oral diltiazem today, 30 mg by mouth every 6 hours -Continue metoprolol 25 mg by mouth twice a day CORONARY ARTERY DISEASE-currently asymptomatic, denies chest pain or shortness of breath. Status post recent myocardial infarction,, followed by angioplasty with stent placement -Continue outpatient management MAINTENANCE ISSUES -DVT prophylaxis; Lovenox 40 mg subcutaneous daily -GI prophylaxis; not indicated -Schneidre catheter; not indicated -Nutrition; 2 g sodium diet -Nicotine dependence; not required CODE STATUS-FULL CODE ADMISSION STATUS-patient will be admitted to inpatient status, expect at least a 2 night hospital stay for evaluation and management of problems as outlined above. At the time of this admission I do not reasonably expected evaluation and management of this problem will require more than a 96 hour hospital stay. DISPOSITION-anticipate discharge to home after the hospital stay. PRIMARY CARE PROVIDER-Dr. Moran
[2019-03-05] MEDS: Warfarin 5 MG Tab PO SCH (12:44)
[2019-03-05] MEDS: Enoxaparin 40 MG/0.4 ML Syringe SUBCUT SCH (17:14)
[2019-03-05] MEDS ORDERED: Digoxin 500 MCG/2 ML Amp IVPUSH ONE (17:59)
[2019-03-05] MEDS: Simvastatin 20 MG Tab PO SCH (20:58)
[2019-03-06] MEDS ORDERED: Digoxin 500 MCG/2 ML Amp IVPUSH PRN (03:28)
[2019-03-06] MEDS ORDERED: Digoxin 500 MCG/2 ML Amp IVPUSH ONE (08:30)
[2019-03-06] MEDS ORDERED: Metoprolol Tartrate 25 MG Tab PO SCH (09:00)
[2019-03-06] MEDS: Tamsulosin 0.4 MG Cap.ER PO SCH (09:31)
[2019-03-06] MEDS: Metoprolol Tartrate 25 MG Tab PO SCH ×2 (09:32→21:40)
[2019-03-06] MEDS: Aspirin 81 MG Tab.EC PO SCH (09:33)
[2019-03-06] MEDS: Furosemide 20 MG Tab PO SCH (09:33)
[2019-03-06] MEDS: Clopidogrel 75 MG Tab PO SCH (09:34)
[2019-03-06] MEDS: Lisinopril 2.5 MG Tab PO SCH (09:34)
--- NOTE | 2019-03-06 10:19 | PCM.PN ---
- General Info Date of Service: 03/06/19 Subjective Update: Mr. Pierson remains in atrial fibrillation with rapid ventricular response. With combination of metoprolol and diltiazem we were able to get her rate under better control but he began to experience significant hypotension. Metoprolol was held last night in the diltiazem discontinued. We did start using IV digoxin , level this morning was subtherapeutic. Heart rates are higher again this morning, especially with activity. - Review of Systems General: Reports: No Symptoms Pulmonary: Reports: No Symptoms Cardiovascular: Reports: No Symptoms Gastrointestinal: Reports: No Symptoms - Patient Data Vitals - Most Recent: Last Vital Signs Temp 97 F 03/06/19 04:00 Pulse 143 H 03/06/19 09:32 Resp 19 03/06/19 06:00 BP 127/80 03/06/19 09:34 Pulse Ox 96 03/06/19 06:00 Weight - Most Recent: 153 lb 0.013 oz I&O - Last 24 Hours: Intake & Output 03/05/19 03/06/19 03/06/19 22:59 06:59 14:59 Output Total 225 425 250 Balance -225 -425 -250 Lab Results Last 24 Hours: Laboratory Results - last 24 hr 03/06/19 03/06/19 Range/Units 04:24 04:24 PT 12.8 H (9.5-12.0) sec INR 1.17 (0.80-1.20) Digoxin 0.44 L (0.90-2.00) ng/mL Med Orders - Current: Current Medications Acetaminophen (Tylenol) 650 mg PO Q4H PRN PRN Reason: Pain (Mild 1-3)/fever Albuterol (Proventil Neb Soln) 2.5 mg NEB Q4H PRN PRN Reason: Shortness Of Breath/wheezing Aspirin (Halfprin) 81 mg PO DAILY [facility] Last Admin: 03/06/19 09:33 Dose: 81 mg Clopidogrel Bisulfate (Plavix) 75 mg PO DAILY [facility] Last Admin: 03/06/19 09:34 Dose: 75 mg Digoxin (Lanoxin) 250 mcg IVPUSH ONETIME PRN PRN Reason: heart rate Enoxaparin Sodium (Lovenox) 40 mg SUBCUT DAILY@1600 [facility] Last Admin: 03/05/19 17:14 Dose: 40 mg Furosemide (Lasix) 60 mg PO DAILY [facility] Last Admin: 03/06/19 09:33 Dose: 60 mg Lisinopril (Prinivil) 2.5 mg PO DAILY [facility] Last Admin: 03/06/19 09:34 Dose: 2.5 mg Metoprolol Tartrate (Lopressor) 25 mg PO BID [facility] Last Admin: 03/06/19 09:32 Dose: 25 mg Ondansetron HCl (Zofran) 4 mg IV Q4H PRN PRN Reason: Nausea/Vomiting Polyethylene Glycol (Miralax) 17 gm PO DAILY PRN PRN Reason: Constipation Simvastatin (Zocor) 20 mg PO BEDTIME [facility] Last Admin: 03/05/19 20:58 Dose: 20 mg Sodium Chloride (Saline Flush) 10 ml FLUSH ASDIRECTED PRN PRN Reason: Keep Vein Open Tamsulosin HCl (Flomax) 0.4 mg PO DAILY [facility] Last Admin: 03/06/19 09:31 Dose: 0.4 mg Discontinued Medications Digoxin (Lanoxin) 250 mcg IVPUSH ONETIME ONE Stop: 03/05/19 18:00 Last Admin: 03/05/19 18:24 Dose: 250 mcg Digoxin (Lanoxin) 250 mcg IVPUSH ONETIME ONE Stop: 03/06/19 08:31 Last Admin: 03/06/19 09:25 Dose: 250 mcg Diltiazem HCl (Cardizem) 30 mg PO Q6HR [facility] Last Admin: 03/05/19 16:28 Dose: Not Given Furosemide (Lasix) 40 mg PO TID [facility] Diltiazem HCl 125 mg/ Dextrose (/Water) 125 mls @ 5 mls/hr IV TITRATE [facility]; Protocol Diltiazem HCl 125 mg/ Sodium (Chloride) 125 mls @ 5 mls/hr IV TITRATE [facility]; Protocol Last Admin: 03/04/19 09:39 Dose: 5 mg/hr, 5 mls/hr Diltiazem HCl 125 mg/ Sodium (Chloride) 125 mls @ 5 mls/hr IV TITRATE [facility]; Protocol Last Titration: 03/05/19 07:22 Dose: 5 mg/hr, 5 mls/hr Metoprolol Tartrate (Lopressor) 25 mg PO BID [facility] Last Admin: 03/05/19 20:54 Dose: Not Given Warfarin Sodium (Coumadin) 5 mg PO DAILY@1300 [facility] Last Admin: 03/05/19 12:44 Dose: 5 mg - Exam Quality Assessment: DVT Prophylaxis General: Alert, Oriented, Cooperative, Mild Distress Cardiovascular: Irregular Rhythm, Tachycardia, Murmurs GI/Abdominal Exam: Soft, Non-Tender, No Organomegaly, No Distention Extremities: Non-Tender, Pedal Edema - Problem List Review Problem List Initiated/Reviewed/Updated: Yes - My Orders Last 24 Hours: My Active Orders 03/06/19 03:28 Digoxin [Lanoxin] 250 mcg IVPUSH ONETIME PRN 03/06/19 09:30 Metoprolol Tartrate [Lopressor] 25 mg PO BID 03/06/19 13:00 Warfarin [Coumadin] 7.5 mg PO DAILY@1300 03/07/19 05:00 BASIC METABOLIC PANEL,BMP [CHEM] Timed DIGOXIN [CHEM] Timed INR,PT,PROTHROMBIN TIME [COAG] Timed - Plan Plan:: ASSESSMENT AND PLAN ATRIAL FIBRILLATION WITH RAPID VENTRICULAR RESPONSE-heart rate control was found to be good with the use of diltiazem and metoprolol, but he experienced unacceptable hypotension. [id number] score of 4, we discussed options for anticoagulation, he prefers use of warfarin. -Warfarin 7.5 mg by mouth daily -Recheck INR in a.m. -Discontinue diltiazem -Digoxin 0.25 mg today -Digoxin level in a.m. -Continue metoprolol 25 mg by mouth twice a day CORONARY ARTERY DISEASE-currently asymptomatic, denies chest pain or shortness of breath. Status post recent myocardial infarction,, followed by angioplasty with stent placement -Continue outpatient management MAINTENANCE ISSUES -DVT prophylaxis; Lovenox 40 mg subcutaneous daily -GI prophylaxis; not indicated -Schneider catheter; not indicated -Nutrition; 2 g sodium diet -Nicotine dependence; not required CODE STATUS-FULL CODE ADMISSION STATUS-patient will be admitted to inpatient status, expect at least a 2 night hospital stay for evaluation and management of problems as outlined above. At the time of this admission I do not reasonably expected evaluation and management of this problem will require more than a 96 hour hospital stay. DISPOSITION-anticipate discharge to home after the hospital stay. PRIMARY CARE PROVIDER-Dr. Moran
[2019-03-06] MEDS ORDERED: Warfarin 2.5 MG Tab PO SCH (13:00)
[2019-03-06] MEDS: Enoxaparin 40 MG/0.4 ML Syringe SUBCUT SCH (16:55)
[2019-03-06] MEDS: Simvastatin 20 MG Tab PO SCH (21:41)
[2019-03-07] MEDS: Metoprolol Tartrate 25 MG Tab PO SCH (08:17)
[2019-03-07] MEDS: Furosemide 20 MG Tab PO SCH (08:17)
[2019-03-07] MEDS: Aspirin 81 MG Tab.EC PO SCH (08:18)
[2019-03-07] MEDS: Lisinopril 2.5 MG Tab PO SCH (08:18)
[2019-03-07] MEDS: Tamsulosin 0.4 MG Cap.ER PO SCH (08:19)
[2019-03-07] MEDS: Clopidogrel 75 MG Tab PO SCH (08:19)
[2019-03-07] MEDS ORDERED: Digoxin 500 MCG/2 ML Amp IVPUSH ONE (09:13)
--- NOTE | 2019-03-07 10:52 | PCM.DCSUM1 ---
Discharge Summary - Hospital Course Brief History: Mr. Pierson is an 88-year-old gentleman who was admitted through the emergency department for management of atrial fibrillation with rapid ventricular response. - Discharge Data Discharge Date: 03/07/19 Discharge Disposition: Home, Self-Care 01 Condition: Fair - Discharge Diagnosis/Problem(s) (1) Atrial fibrillation with rapid ventricular response SNOMED Code(s): 373956501090693 ICD Code: I48.91 - UNSPECIFIED ATRIAL FIBRILLATION Status: Acute Current Visit: Yes (2) Chronic combined systolic (congestive) and diastolic (congestive) heart failure SNOMED Code(s): 881136222383011, 639789661173065 ICD Code: I50.42 - CHRONIC COMBINED SYSTOLIC AND DIASTOLIC HRT FAIL Status : Chronic Current Visit: No (3) CAD (coronary artery disease) SNOMED Code(s): 32392370 ICD Code: I25.10 - ATHSCL HEART DISEASE OF [place] CORONARY ARTERY W/O ANG PCTRS Status: Chronic Current Visit: No (4) Hx of non-ST elevation myocardial infarction (NSTEMI) SNOMED Code(s): 385250289 ICD Code: I25.2 - OLD MYOCARDIAL INFARCTION Status: Chronic Current Visit : No - Patient Summary/Data Hospital Course: Mr. Pierson is an 88-year-old gentleman was admitted through the emergency department with atrial fibrillation and rapid ventricular response. He is status post myocardial infarction with angioplasty and stent placement done over one month ago. Apparently hospital course at that time was complicated by atrial fibrillation and he was treated for a few weeks with Eliquis. He had been feeling well and participating in cardiac rehabilitation. He had been to cardiac rehabilitation last , February 26, at that time he was found to be in sinus rhythm. He went back to cardiac rehabilitation yesterday March 03, was found to be in atrial fibrillation with rapid ventricular response. He was entirely asymptomatic and denied any symptoms of chest pain or pressure, shortness of breath, lightheadedness, or palpitations. He was seen and evaluated in the emergency department,, atrial fibrillation was confirmed. He preferred to avoid hospitalization and was treated with oral diltiazem for rate control. He returned this morning and was still found to be in the range 130 bpm with persistent atrial fibrillation. He remains entirely asymptomatic, labs obtained yesterday showed no acute abnormalities or significant electrolyte imbalances. On admission he was continued on IV infusion of diltiazem. Great control remained fairly good with this intervention and he was transitioned to oral diltiazem in addition to the metoprolol the following morning. This combination of medications did result in good control of heart rate but unfortunately did create hypotension. Medications were held later that evening and he was started on IV digoxin. The last 24 hours of admission he was treated with digoxin and oral metoprolol, this resulted in good control of his rate without significant hypotension. He will be discharged home with these medications. On admission we did discuss anticoagulation, [id number] was 4. He opted to start oral anticoagulation with warfarin, 5 mg daily. But at time of discharge his INR was up to 1.7. He will be continued on the warfarin at 5 mg daily and will have a follow-up INR obtained in the Coumadin clinic in 2 days on Saturday, March 09. Activity will be as tolerated and he will resume his usual diet. Follow-up appointment will be scheduled with his primary care physician within one week, digoxin level should be obtained at the time of follow-up appointment. - Patient Instructions Diet: Low Sodium Activity: As Tolerated Other/Special Instructions: Please schedule follow-up appointment with Dr. Moran within 1 week. Digoxin level should be obtained at the time of that follow-up appointment. Please schedule appointment in the Coumadin clinic for Saturday, March 09. - Discharge Plan *PRESCRIPTION DRUG MONITORING PROGRAM REVIEWED*: Not Applicable *COPY OF PRESCRIPTION DRUG MONITORING REPORT IN PATIENT MAREN: Not Applicable Prescriptions/Med Rec: Digoxin 250 mcg PO DAILY #30 tablet Metoprolol Tartrate [Lopressor] 25 mg PO BID #60 tablet Warfarin [Coumadin] 5 mg PO DAILY@1300 #100 tablet Home Medications: Home Meds Clopidogrel [Plavix] 75 mg PO DAILY 08/08/16 [History] Lisinopril 2.5 mg PO DAILY 08/08/16 [History] Nitroglycerin [Nitrostat] 0.3 mg SL ASDIRECTED 08/08/16 [History] Simvastatin [Zocor] 20 mg PO BEDTIME 08/08/16 [History] Tamsulosin [Flomax] 0.4 mg PO DAILY 08/08/16 [History] Furosemide 60 mg PO DAILY 01/13/19 [History] Digoxin 250 mcg PO DAILY #30 tablet 03/07/19 [Rx] Metoprolol Tartrate [Lopressor] 25 mg PO BID #60 tablet 03/07/19 [Rx] Warfarin [Coumadin] 5 mg PO DAILY@1300 #100 tablet 03/07/19 [Rx] Referrals: Austin Moran MD [Primary Care Provider] - - Discharge Summary/Plan Comment DC Time >30 min.: No - Patient Data Vitals - Most Recent: Last Vital Signs Temp 96.8 F 03/07/19 05:00 Pulse 84 03/07/19 09:23 Resp 20 03/07/19 06:00 BP 130/71 03/07/19 08:18 Pulse Ox 94 L 03/07/19 06:00 Weight - Most Recent: 153 lb 0.013 oz I&O - Last 24 hours: Intake & Output 03/06/19 03/07/19 03/07/19 22:59 06:59 14:59 Intake Total 720 Output Total 650 325 500 Balance 70 -325 -500 Lab Results - Last 24 hrs: Laboratory Results - last 24 hr 03/07/19 03/07/19 Range/Units 03:50 03:50 PT 18.1 H (9.5-12.0) sec INR 1.70 H (0.80-1.20) Sodium 141 (140-148) mmol/L Potassium 4.1 (3.6-5.2) mmol/L Chloride 108 (100-108) mmol/L Carbon Dioxide 25 (21-32) mmol/L Anion Gap 8.0 (5.0-14.0) mmol/L BUN 43 H (7-18) mg/dL Creatinine 1.2 (0.8-1.3) mg/dL Est Cr Clr Drug Dosing 41.32 mL/min Estimated GFR (MDRD) 57 L (>60) Glucose 87 (74-106) mg/dL Calcium 8.5 (8.5-10.1) mg/dL Digoxin 0.91 (0.90-2.00) ng/mL Med Orders - Current: Current Medications Acetaminophen (Tylenol) 650 mg PO Q4H PRN PRN Reason: Pain (Mild 1-3)/fever Albuterol (Proventil Neb Soln) 2.5 mg NEB Q4H PRN PRN Reason: Shortness Of Breath/wheezing Aspirin (Halfprin) 81 mg PO DAILY MARY Last Admin: 03/07/19 08:18 Dose: 81 mg Clopidogrel Bisulfate (Plavix) 75 mg PO DAILY [facility] Last Admin: 03/07/19 08:19 Dose: 75 mg Digoxin (Lanoxin) 250 mcg IVPUSH ONETIME PRN PRN Reason: heart rate Enoxaparin Sodium (Lovenox) 40 mg SUBCUT DAILY@1600 [facility] Last Admin: 03/06/19 16:55 Dose: 40 mg Furosemide (Lasix) 60 mg PO DAILY [facility] Last Admin: 03/07/19 08:17 Dose: 60 mg Lisinopril (Prinivil) 2.5 mg PO DAILY [facility] Last Admin: 03/07/19 08:18 Dose: 2.5 mg Metoprolol Tartrate (Lopressor) 25 mg PO BID [facility] Last Admin: 03/07/19 08:17 Dose: 25 mg Ondansetron HCl (Zofran) 4 mg IV Q4H PRN PRN Reason: Nausea/Vomiting Polyethylene Glycol (Miralax) 17 gm PO DAILY PRN PRN Reason: Constipation Simvastatin (Zocor) 20 mg PO BEDTIME [facility] Last Admin: 03/06/19 21:41 Dose: 20 mg Sodium Chloride (Saline Flush) 10 ml FLUSH ASDIRECTED PRN PRN Reason: Keep Vein Open Tamsulosin HCl (Flomax) 0.4 mg PO DAILY [facility] Last Admin: 03/07/19 08:19 Dose: 0.4 mg Warfarin Sodium (Coumadin) 7.5 mg PO DAILY@1300 [facility] Last Admin: 03/06/19 14:10 Dose: 7.5 mg Warfarin Sodium (Coumadin) 5 mg PO ONETIME ONE Stop: 03/07/19 10:46 Discontinued Medications Digoxin (Lanoxin) 250 mcg IVPUSH ONETIME ONE Stop: 03/05/19 18:00 Last Admin: 03/05/19 18:24 Dose: 250 mcg Digoxin (Lanoxin) 250 mcg IVPUSH ONETIME ONE Stop: 03/06/19 08:31 Last Admin: 03/06/19 09:25 Dose: 250 mcg Digoxin (Lanoxin) 250 mcg IVPUSH ONETIME ONE Stop: 03/07/19 09:14 Last Admin: 03/07/19 09:23 Dose: 250 mcg Diltiazem HCl (Cardizem) 30 mg PO Q6HR [facility] Last Admin: 03/05/19 16:28 Dose: Not Given Furosemide (Lasix) 40 mg PO TID [facility] Diltiazem HCl 125 mg/ Dextrose (/Water) 125 mls @ 5 mls/hr IV TITRATE MARY; Protocol Diltiazem HCl 125 mg/ Sodium (Chloride) 125 mls @ 5 mls/hr IV TITRATE MARY; Protocol Last Admin: 03/04/19 09:39 Dose: 5 mg/hr, 5 mls/hr Diltiazem HCl 125 mg/ Sodium (Chloride) 125 mls @ 5 mls/hr IV TITRATE MARY; Protocol Last Titration: 03/05/19 07:22 Dose: 5 mg/hr, 5 mls/hr Metoprolol Tartrate (Lopressor) 25 mg PO BID [facility] Last Admin: 03/05/19 20:54 Dose: Not Given Warfarin Sodium (Coumadin) 5 mg PO DAILY@1300 [facility] Last Admin: 03/05/19 12:44 Dose: 5 mg - Exam Quality Assessment: Reports: DVT Prophylaxis General: Reports: Alert, Oriented, Cooperative, No Acute Distress Lungs: Reports: Clear to Auscultation, Normal Respiratory Effort Cardiovascular: Reports: Regular Rate, Irregular Rhythm, Murmurs GI/Abdominal Exam: Soft, Non-Tender, No Organomegaly, No Distention Extremities: Non-Tender, Pedal Edema
[2019-03-07 10:53] VITALS: BP 131/79
[2019-03-07] MEDS ORDERED: Warfarin 5 MG Tab PO ONE (11:00)
== END 2019-03-07 11:45 | disposition home or self-care (01) | DRG 309 ==
LOC: JP.ED 08:58 → JP.ICU 11:57
PROVIDERS: ADMIT Hospitalist; ATTEND Hospitalist
DX: I48.1 Persistent atrial fibrillation (principal); I50.40 Unspecified combined systolic (congestive) and diastolic (congestive) heart failure; I11.0 Hypertensive heart disease with heart failure; I25.2 Old myocardial infarction; I25.10 Atherosclerotic heart disease of native coronary artery without angina pectoris; Z95.1 Presence of aortocoronary bypass graft; Z95.5 Presence of coronary angioplasty implant and graft; Z87.891 Personal history of nicotine dependence; E78.00 Pure hypercholesterolemia, unspecified; N40.1 Benign prostatic hyperplasia with lower urinary tract symptoms; R33.8 Other retention of urine; Z79.82 Long term (current) use of aspirin; Q74.0 Other congenital malformations of upper limb(s), including shoulder girdle; H54.7 Unspecified visual loss
CPT/HCPCS: 96360; 96361; 99285 ×2; J3490; J7030; 36415; 80048; 80162; 83735; 84443; 85610; 93306; A9270-GY; J1160; J1650